=== PATIENT | male | born 1975 | race Caucasian/White ===

== ENCOUNTER 2017-03-20 13:23 | Emergency (ER) | payer MEDICAID ==
[2017-03-20 13:28] VITALS: TEMP 98.2
[2017-03-20] MEDS ORDERED: fentaNYL 100 MCG/2 ML INJ ONE (14:23)
[2017-03-20] MEDS ORDERED: ONDANSETRON 4 MG/2 ML VIAL ONE (14:23)
[2017-03-20] MEDS ORDERED: fentaNYL 100 MCG/2 ML INJ IVP ONE (14:30)
[2017-03-20] MEDS ORDERED: ONDANSETRON 4 MG/2 ML VIAL IVP ONE (14:30)
--- NOTE | 2017-03-20 15:24 | EDPHY ---
H & P Time Seen by Provider: 03/20/17 14:29 HPI/ROS: CHIEF COMPLAINT: Chronic back pain, constipation HISTORY OF PRESENT ILLNESS: 41-year-old male presents to the emergency department complaining of constipation. The patient has a history of chronic back pain and develops flare ups every now and then. He started having low back pain few days ago and has been more immobilized in lying in bed and then developed constipation. Last bowel movement was 4 days ago. He is passing gas. He states that he became nauseous today and started vomiting. Was not sure if this was from the pain. He is concerned about possible bowel obstruction. He has never had surgery on his abdomen in the past. No fevers or chills. No chest pain or difficulty breathing. No urinary symptoms. REVIEW OF SYSTEMS: Constitutional: No fever, no chills. Eyes: No double or blurry vision. ENT: No sore throat. Respiratory: No cough, no shortness of breath. Cardiac: No chest pain. Gastrointestinal: Abdominal cramping. No vomiting or diarrhea. Genitourinary: No dysuria. Musculoskeletal: Chronic back pain as above. No neck pain. Skin: No rashes. Neurological: No headache. Past Medical/Surgical History: Chronic back pain Social History: Single and lives in [place] Smoking Status: Current every day smoker Physical Exam: General Appearance: Alert, no distress. Afebrile. 98% on room air Eyes: Pupils equal and round. Extraocular motions are all intact. ENT: Mouth: Mucous membranes moist. Respiratory: No wheezing, rhonchi, or rales, lungs are clear to auscultation. Cardiovascular: Regular rate and rhythm. Gastrointestinal: Abdomen is soft and nontender, no masses, no rebound or guarding, bowel sounds normal. No CVA tenderness bilaterally. Neurological: Alert and oriented x 3, cranial nerves II through XII grossly intact Skin: Warm and dry, no rashes. Musculoskeletal: Nontender to palpate along the cervical, thoracic or lumbar spine. Neck is supple. Extremities: Full range of motion and no peripheral edema. Psychiatric: Patient is oriented X 3, there is no agitation. Constitutional: Initial Vital Signs Temperature (C) 36.8 C 03/20/17 13:26 Heart Rate 71 03/20/17 13:26 Respiratory Rate 18 03/20/17 13:26 Blood Pressure 127/88 H 03/20/17 13:26 O2 Sat (%) 98 03/20/17 13:26 O2 Delivery Mode Room Air Allergies/Adverse Reactions: brompheniramine maleate [From Dimetapp (brompheniramine-PPA)] Allergy (Mild, Verified 07/23/16 15:56) makes me hyper as a kid phenylpropanolamine HCl [From Dimetapp (brompheniramine-PPA)] Allergy (Mild, Verified 07/23/16 15:56) makes me hyper as a kid Home Medications: Medication Instructions Recorded NK [No Known Home Meds] 07/23/16 Medical Decision Making - Diagnostics Imaging Results: Imaging Impressions Abdomen X-Ray 03/20/17 14:52 Impression: 1. Moderate constipation suspected. Imaging: I viewed and interpreted images myself ED Course/Re-evaluation: 41-year-old male presents to the emergency department feeling constipated. 2 way abdominal x-rays reveal evidence of constipation without bowel obstruction. The nurse had already established an IV and given him fentanyl and Zofran. I do not think additional imaging studies are necessary. The patient is comfortable being discharged home. I encouraged close follow-up with primary care provider. He was given GoLYTELY in the emergency department and told that he may drink half the prep or he may also try [id number] magnesium citrate. Patient was instructed to return if he developed recurring vomiting or if he felt worse in any way. Differential Diagnosis: Including but not limited to gastritis, constipation, muscular pain, herniated disc, spine fracture, intra-abdominal causes and urinary tract infection. Departure - Departure Disposition: Home, Routine, Self-Care Clinical Impression: Constipation Qualifiers: Constipation type: unspecified constipation type Qualified Code(s): K59.00 - Constipation, unspecified Vomiting Qualifiers: Vomiting type: unspecified Vomiting Intractability: non-intractable Nausea presence: with nausea Qualified Code(s): R11.2 - Nausea with vomiting, unspecified Chronic back pain Qualifiers: Back pain location: low back pain Back pain laterality: unspecified Sciatica presence: without sciatica Qualified Code(s): M54.5 - Low back pain Condition: Good Instructions: Polyethylene Glycol 3350/Electrolytes (By mouth), Acute Nausea and Vomiting (ED), Chronic Back Pain (ED) Additional Instructions: Drink plenty of fluids. You may try magnesium citrate [id number] to help relieve symptoms of constipation. Walking as discussed will also help to move her bowels. You have no evidence of obstruction on x-ray. Referrals: Gabo Andrews MD [Primary Care Provider] - 1 day, if not improved
[2017-03-20] MEDS ORDERED: GOLYTELY 4000 ML BTL PO ONE (15:53)
[2017-03-20 16:02] VITALS: BP 133/90; PULSE 98; RESP 16; O2SAT 95
== END 2017-03-20 16:20 | disposition home or self-care (01) ==
DX: K59.00 Constipation, unspecified (principal); R11.2 Nausea with vomiting, unspecified; M54.5 Low back pain; G89.29 Other chronic pain; F17.200 Nicotine dependence, unspecified, uncomplicated
CPT/HCPCS: 96374; J2060; J2405; J3010; Q9967

== ENCOUNTER 2017-03-20 19:26 | Emergency (ER) | payer MEDICAID ==
[2017-03-20 19:37] VITALS: RESP 16; TEMP 97.7
[2017-03-20] MEDS ORDERED: LORazepam 2 MG/ML INJ IVP ONE ×2 (19:56→21:10)
--- NOTE | 2017-03-20 19:59 | EDPHY ---
H & P Stated Complaint: constipated, vomited up laxitive from visit earlier today Time Seen by Provider: 03/20/17 19:44 HPI/ROS: CHIEF COMPLAINT: Continued abdominal pain HISTORY OF PRESENT ILLNESS: 41-year-old male seen emergency department earlier this morning diagnosed with constipation given prescription for a laxative, returns to the ER complaining of worsening abdominal pain with associated vomiting. No testicular pain. No urinary complaints. No abdominal or testicle trauma. No back or flank pain. He has a history of chronic back pain. REVIEW OF SYSTEMS: [A ten point review of systems was performed and is negative with the exception of the items mentioned in the HPI] [PAST MEDICAL & SURGICAL HISTORY:] [ chronic back pain ] SOCIAL HISTORY:[ ] [FAMILY HISTORY:][ No pertinent family history ] PHYSICAL EXAM (Prior to examination, patient consented to physical exam, hands were washed and my usual and customary physical exam procedures followed) 1) GENERAL: [Well-developed, well-nourished, alert and oriented. Appears uncomfortable ] 2) HEAD: [Normocephalic, atraumatic] 3) HEENT: [Pupils equal, round, reactive to light bilaterally. Sclera anicteric. ] 4) NECK: [Full range of motion, no meningeal signs.] 5) LUNGS: [Clear auscultation bilaterally, no wheezes, no rhonchi, no retractions.] 6) HEART: [Regular rate and rhythm, no murmur, no heave, no gallop.] 7) ABDOMEN: [abdomen is distended. Firm. However there is no focal tenderness including no McBurney's point pain], 8) MUSCULOSKELETAL: [Moving all extremities, no focal areas of tenderness, no obvious trauma. No peripheral edema or discoloration.] 9) BACK: [No CVA tenderness] 10) SKIN: [No rash, no petechiae.] [11) : Normal male external genitalia bilateral cremasteric reflex present, no testicular swelling, tenderness, asymmetry. 12) RECTAL: No stool in the rectal vault. .] DIFFERENTIAL DIAGNOSIS: [ My differential diagnosis includes, but is not limited to, acute appendicitis, acute cholecystitis, bowel obstruction, acute pancreatitis, [testicular torsion], gastritis and urinary tract infection. The patient understands that this diagnosis is provisional and can never be 100% accurate. This is a partial list of diagnoses considered. These considerations are based on history, physical exam, past history and reassessment.] - Personal History Current Tetanus/Diphtheria Vaccine: Yes Current Tetanus Diphtheria and Acellular Pertussis (TDAP): Yes - Medical/Surgical History Hx Asthma: No Hx Chronic Respiratory Disease: No Hx Diabetes: No Hx Cardiac Disease: No Hx Renal Disease: No Hx Cirrhosis: No Hx Alcoholism: No Hx HIV/AIDS: No Hx Splenectomy or Spleen Trauma: No Other PMH: CHRONIC BACK PAIN - Social History Smoking Status: Current every day smoker Constitutional: Initial Vital Signs Temperature (C) 36.5 C 03/20/17 19:35 Heart Rate 75 03/20/17 19:35 Respiratory Rate 16 03/20/17 19:35 Blood Pressure 137/101 H 03/20/17 19:35 O2 Sat (%) 96 03/20/17 19:35 O2 Delivery Mode Room Air Allergies/Adverse Reactions: brompheniramine maleate [From Dimetapp (brompheniramine-PPA)] Allergy (Mild, Verified 07/23/16 15:56) makes me hyper as a kid phenylpropanolamine HCl [From Dimetapp (brompheniramine-PPA)] Allergy (Mild, Verified 07/23/16 15:56) makes me hyper as a kid Home Medications: Medication Instructions Recorded NK [No Known Home Meds] 07/23/16 Medical Decision Making - Diagnostics Imaging Results: Imaging Impressions Abdomen CT 03/20/17 20:11 Impression: 1. Mild distal thoracic esophageal wall thickening, which could represent some low-grade inflammation. 2. Mild generalized hepatic steatosis. 3. Intraluminal fluid within the distal small bowel and throughout the colon to the mid-descending large bowel, with fecal material seen distal to this. Could the patient's symptoms be a result of a mild enterocolitis upstream from some ear-mp-mnietu colonic constipation? Would a warm water enema be of benefit? 4. Normal appearance of the appendix. Findings were discussed with Sienna Marmolejo PA-C at 21:30, on 03/20/2017. Images reviewed by myself ED Course/Re-evaluation: Re-evaluation with serial exams. Most recent exam at 10:15 p.m. he is sleeping , easily woken. He has had a bowel movement while in the emergency department after being given soapsuds enema. He is feeling improvement, he would like to be discharged. Discussed his imaging studies. Doubt acute surgical abdominal pathology. Doubt acute appendicitis. Usual and customary abdominal precautions and instructions provided. Recommend he consume the previously prescribed laxative medication - Data Points Laboratory Results: Laboratory Results 03/20/17 19:48 03/20/17 19:48 03/20/17 03/20/17 19:48 19:48 WBC 15.25 10^3/uL H 10^3/uL (3.80-9.50) RBC 5.31 10^6/uL 10^6/uL (4.40-6.38) Hgb 16.7 g/dL g/dL (13.7-17.5) Hct 48.2 % % (40.0-51.0) MCV 90.8 fL fL (81.5-99.8) MCH 31.5 pg pg (27.9-34.1) MCHC 34.6 g/dL g/dL (32.4-36.7) RDW 13.4 % % (11.5-15.2) Plt Count 228 10^3/uL 10^3/uL (150-400) MPV 10.7 fL fL (8.7-11.7) Neut % (Auto) 84.6 % H % (39.3-74.2) Lymph % (Auto) 10.9 % L % (15.0-45.0) [place] % (Auto) 3.6 % L % (4.5-13.0) Eos % (Auto) 0.1 % L % (0.6-7.6) Baso % (Auto) 0.3 % % (0.3-1.7) Nucleat RBC Rel Count 0.0 % % (0.0-0.2) Absolute Neuts (auto) 12.91 10^3/uL H 10^3/uL (1.70-6.50) Absolute Lymphs (auto) 1.66 10^3/uL 10^3/uL (1.00-3.00) Absolute Monos (auto) 0.55 10^3/uL 10^3/uL (0.30-0.80) Absolute Eos (auto) 0.02 10^3/uL L 10^3/uL (0.03-0.40) Absolute Basos (auto) 0.04 10^3/uL 10^3/uL (0.02-0.10) Absolute Nucleated RBC 0.00 10^3/uL 10^3/uL (0-0.01) Immature Gran % 0.5 % % (0.0-1.1) Immature Gran # 0.07 10^3/uL 10^3/uL (0.00-0.10) Sodium 137 mEq/L mEq/L (134-144) Potassium 4.3 mEq/L mEq/L (3.5-5.2) Chloride 104 mEq/L mEq/L (97-110) Carbon Dioxide 21 mEq/l L mEq/l (22-31) Anion Gap 12 mEq/L mEq/L (8-16) BUN 13 mg/dL mg/dL (7-23) Creatinine 0.7 mg/dL mg/dL (0.7-1.3) Estimated GFR > 60 Glucose 122 mg/dL H mg/dL (70-100) Calcium 9.6 mg/dL mg/dL (8.5-10.4) Total Bilirubin 0.9 mg/dL mg/dL (0.1-1.4) Conjugated Bilirubin 0.4 mg/dL mg/dL (0.0-0.5) Unconjugated Bilirubin 0.5 mg/dL mg/dL (0.0-1.1) AST 32 IU/L IU/L (17-59) ALT 52 IU/L IU/L (21-72) Alkaline Phosphatase 66 IU/L IU/L (38-126) Total Protein 8.4 g/dL H g/dL (6.3-8.2) Albumin 4.9 g/dL g/dL (3.5-5.0) Lipase 55.0 IU/L IU/L (23-300) Medications Given: Discontinued Medications Lorazepam (Ativan Injection) 1 mg IVP EDNOW ONE Stop: 03/20/17 19:57 Last Admin: 03/20/17 20:10 Dose: 1 mg Ondansetron HCl (Zofran) 4 mg IVP EDNOW ONE Stop: 03/20/17 20:06 Last Admin: 03/20/17 20:09 Dose: 4 mg Departure - Departure Disposition: Home, Routine, Self-Care Clinical Impression: Constipation Qualifiers: Constipation type: other constipation type Qualified Code(s): K59.09 - Other constipation Condition: Good Instructions: Constipation (ED), High Fiber Diet (ED), Fleet Enema (ED) Additional Instructions: Seek immediate medical attention if you develop new or worsening symptoms, if you develop fevers, chills, inability to tolerate oral intake or any other symptoms that concerns you. Referrals: Gabo Andrews MD [Primary Care Provider] - 1-2 days without fail
[2017-03-20 20:05] LABS: % IMMATURE GRANULYOCYTES 0.5 % (0.0-1.1); ABSOLUTE IMMATURE GRANULOCYTES 0.07 10^3/uL (0.00-0.10); ADD DIFF? NO; ADD MORPH? NO; ADD SCAN? NO; ATYPICAL LYMPHOCYTE FLAG 0 (0-99); FRAGMENT RBC FLAG 0 (0-99); HEMATOCRIT 48.2 % (40.0-51.0); HEMOGLOBIN 16.7 g/dL (13.7-17.5); LEFT SHIFT FLG 0 (0-99); LIPEMIA HEMOLYSIS FLAG 90 (0-99); MEAN CELL HEMOGLOBIN 31.5 pg (27.9-34.1); MEAN CELL HEMOGLOBIN CONCENTR. 34.6 g/dL (32.4-36.7); MEAN CELL VOLUME 90.8 fL (81.5-99.8); MEAN PLATELET VOLUME 10.7 fL (8.7-11.7); PLATELET CLUMPS FLAG 10 (0-99); PLATELET COUNT 228 10^3/uL (150-400); RED BLOOD CELL COUNT 5.31 10^6/uL (4.40-6.38); RED CELL DISTRIBUTION WIDTH 13.4 % (11.5-15.2)
[2017-03-20] MEDS ORDERED: ONDANSETRON 4 MG/2 ML VIAL IVP ONE (20:05)
[2017-03-20] MEDS ORDERED: ONDANSETRON 4 MG/2 ML VIAL ONE (20:06)
[2017-03-20 20:19] LABS: ALANINE AMINOTRANSFERASE 52 IU/L (21-72); ALBUMIN 4.9 g/dL (3.5-5.0); ALKALINE PHOSPHATASE 66 IU/L (38-126); ANION GAP 12 mEq/L (8-16); ASPARTATE AMINOTRANSFERASE 32 IU/L (17-59); BILIRUBIN,TOTAL 0.9 mg/dL (0.1-1.4); BILIRUBIN-CONJUGATED 0.4 mg/dL (0.0-0.5); BILIRUBIN-UNCONJUGATED 0.5 mg/dL (0.0-1.1); CALCIUM 9.6 mg/dL (8.5-10.4); CARBON DIOXIDE 21 mEq/l (22-31); CHLORIDE 104 mEq/L (97-110); CREATININE 0.7 mg/dL (0.7-1.3); GLOMERULAR FILTRATION RATE > 60; GLUCOSE 122 mg/dL (70-100); POTASSIUM 4.3 mEq/L (3.5-5.2); SODIUM 137 mEq/L (134-144); TOTAL PROTEIN 8.4 g/dL (6.3-8.2)
[2017-03-20] MEDS ORDERED: IOPAMIDOL (ISOVUE-300) 100 ML BTL ONE (20:31)
[2017-03-20 22:55] VITALS: BP 127/87; PULSE 76; O2SAT 95
== END 2017-03-20 22:55 | disposition home or self-care (01) ==
DX: K59.09 Other constipation (principal); F17.200 Nicotine dependence, unspecified, uncomplicated
CPT/HCPCS: 96374; J2060; J2405; Q9967

== ENCOUNTER 2018-03-14 04:29 | Emergency (ER) | payer MEDICAID ==
--- NOTE | 2018-03-14 04:31 | EDPHY ---
H & P Time Seen by Provider: 03/14/18 04:30 HPI/ROS: HPI CHIEF COMPLAINT: Constipation and chronic back pain. HISTORY OF PRESENT ILLNESS: Patient is a 42-year-old male, he has a history of chronic back pain, he states he usually was prescribed Soma and oxycodone for his chronic back pain however he states since the opioid epidemic no but he will give him these medications. 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 His chronic back pain has gotten worse. He complains of back spasm. He denies any saddle anesthesia, denies bowel or bladder incontinence, denies leg weakness or focal numbness or tingling. He additionally reports that he has been very constipated. He states he last had a bowel movement yesterday but not very successful very hard stool. He states he needs medication to help him with his constipation. He denies any fever, denies chest pain or shortness of breath denies significant abdominal pain. He does report that he has been nauseous. States been taking ibuprofen for his back pain. Patient denies any dark tarry stool or vomiting blood or blood in his stool. Past Medical History: Chronic back pain, history of constipation Past Surgical History: No recent surgery Social History: He denies illicit drugs or alcohol. Family History: Noncontributory ROS REVIEW OF SYSTEMS: A comprehensive 10 point review of systems is otherwise negative aside from elements mentioned in the history of present illness. Exam Constitutional appears nontoxic no acute distress, triage nursing summary reviewed, vital signs reviewed, awake/alert. Eyes normal conjunctivae and sclera, EOMI, PERRLA. HENT normal inspection, atraumatic, moist mucus membranes, no epistaxis, neck supple/ no meningismus, no raccoon eyes. Respiratory clear to auscultation bilaterally, normal breath sounds, no respiratory distress, no wheezing. Cardiovascular rate normal, regular rhythm, no murmur, no edema, distal pulses normal. Gastrointestinal no significant tenderness on exam, he has normal bowel sounds, soft, non-tender, no rebound, no guarding, normal bowel sounds, no distension , no pulsatile mass. Genitourinary no CVA tenderness. Musculoskeletal no midline vertebral tenderness, full range of motion, no calf swelling, no tenderness of extremities, no meningismus, good pulses, neurovascularly intact. Skin pink, warm, & dry, no rash, skin atraumatic. Neurologic awake, alert and oriented x 3, AAOx3, moves all 4 extremities equally, motor intact, sensory intact, CN II-XII intact, normal cerebellar, normal vision, normal speech. Psychiatric normal mood/affect. Heme/Lymph/Immune no lymphadenopathy. Differential Diagnosis: Includes but is not limited to in a particular order constipation, fecal impaction, ileus, small-bowel obstruction, acute on chronic back pain Medical Decision Making: Plan for this patient patient requesting something or nausea will give both 4 mg p. O. Dose of Zofran, additionally he is requesting to drink water. Will obtain KUB to rule out abnormal bowel gas pattern. If it shows constipation I do think he would benefit from MiraLax and possibly enema. As for his chronic back pain I am not inclined to prescribe him opioids are strong muscle relaxants. I do recommend he follows up with his primary care doctor about this. His abdomen is rather soft here in emergency room nontender. I do not feel that he needs any further imaging however will obtain a KUB. Re-evaluation: Patient x-ray KUB shows constipation. No evidence of obstruction. No free air. Image interpreted by myself. 0508: Had a lengthy discussion about this patient's constipation with him. I did recommend he goes home and takes MiraLax as well as possible Mag citrate however patient is not comfortable going home he would like to be treated for acute constipation here in the emergency room specifically he would like an enema. Will prescribe him an enema here in the emergency room and see what results he has. Additionally patient drinking water fine here in the emergency room is not vomiting. His abdomen is soft nontender. Will prescribe him MiraLax and Mag citrate. Enema here in the emergency room. 0517: Patient called me back into the room discuss pain medicine. He is specifically requesting narcotic pain medication. Explained I am not inclined to prescribe him narcotic pain medicine if he is suffering from constipation. Recommend he tries an enema here in the emergency room. Prescription will be also given for MiraLax and Mag citrate. Again his exam is benign abdomen soft nontender. He is not vomiting. Vital signs are stable. KUB reviewed shows constipation. I believe patient be benefitting from an enema and stool softeners. I believe narcotics would actually cause him further harm in the setting of worsening constipation. 0603AM: Patient tried 2 enemas here in emergency room unsuccessfully. He is unable to hold min. Plan will be for soapsuds enema. 0628: Patient soapsuds enema with a bowel movement here. Feeling better. Patient good bowel movement here. Feeling better. Okay for discharge. MiraLax and Mag citrate. Return precautions discussed with him. Source: Patient - Medical/Surgical History Hx Asthma: No Hx Chronic Respiratory Disease: No Hx Diabetes: No Hx Cardiac Disease: No Hx Renal Disease: No Hx Cirrhosis: No Hx Alcoholism: No Hx HIV/AIDS: No Hx Splenectomy or Spleen Trauma: No Other PMH: CHRONIC BACK PAIN - Social History Smoking Status: Current every day smoker Constitutional: Initial Vital Signs Temperature (C) 37.1 C 03/14/18 04:32 Heart Rate 78 03/14/18 04:32 Respiratory Rate 16 03/14/18 04:32 Blood Pressure 117/95 H 03/14/18 04:32 O2 Sat (%) 94 03/14/18 04:32 O2 Delivery Mode Room Air Allergies/Adverse Reactions: brompheniramine maleate [From Dimetapp (brompheniramine-PPA)] Allergy (Mild, Verified 03/14/18 04:35) makes me hyper as a kid phenylpropanolamine HCl [From Dimetapp (brompheniramine-PPA)] Allergy (Mild, Verified 03/14/18 04:35) makes me hyper as a kid Home Medications: Medication Instructions Recorded Magnesium Citrate [Citrate of 296 ml PO BID #2 solution 03/14/18 Magnesia] Polyethylene Glycol 3350 [Miralax 17 gm PO DAILY #4 pkt 03/14/18 17 gm (*)] Medical Decision Making - Data Points Medications Given: Discontinued Medications Ondansetron HCl (Zofran Odt) 4 mg PO EDNOW ONE Stop: 03/14/18 04:46 Last Admin: 03/14/18 04:47 Dose: 4 mg Departure - Departure Disposition: Home, Routine, Self-Care Clinical Impression: Constipation Qualifiers: Constipation type: slow transit constipation Qualified Code(s): K59.01 - Slow transit constipation Condition: Good Instructions: Constipation (ED) Additional Instructions: 1. Drink lots of fluids. 2. Increase her fiber. Fruits and vegetables. Prune juice. 3. MiraLax as prescribed. Mag citrate as prescribed. 4. Return to the emergency room if develops worsening abdominal pain fever vomiting. Referrals: Gabo Andrews MD [Primary Care Provider] - As per Instructions Prescriptions: Magnesium Citrate [Citrate of Magnesia] 296 ml PO BID #2 solution Polyethylene Glycol 3350 [Miralax 17 gm (*)] 17 gm PO DAILY #4 pkt
[2018-03-14] MEDS ORDERED: ONDANSETRON DISINTEGRATING 4 MG TAB PO ONE (04:45)
[2018-03-14] MEDS ORDERED: ONDANSETRON DISINTEGRATING 4 MG TAB ONE (04:46)
[2018-03-14 06:57] VITALS: BP 120/76
== END 2018-03-14 06:50 | disposition home or self-care (01) ==
DX: K59.01 Slow transit constipation (principal); F17.200 Nicotine dependence, unspecified, uncomplicated